=== PATIENT | male | born 1950 | race Native Hawaiian/Other Pacific Islander ===

== ENCOUNTER 2017-11-17 07:32 | Day surgery (SDC) | payer OTHER ==
[2017-11-11 07:26] VITALS: BMI 28.1
[2017-11-17] MEDS ORDERED: Propofol 10 mg/ml Inj (20 ML) ONE (09:57)
[2017-11-17] MEDS ORDERED: Midazolam 2 MG/2 ML VIAL ONE (09:57)
[2017-11-17] MEDS ORDERED: Rocuronium 10 mg/ml (10 ml) ONE (09:58)
[2017-11-17] MEDS ORDERED: ceFAZolin 1 gm in NS 1 GM/100 ML BAG IVPB ONE (10:14)
[2017-11-17] MEDS ORDERED: Iohexol 240 (50 ml) ONE ×2 (10:29→11:01)
[2017-11-17] MEDS ORDERED: HYDROmorphone 0.5 mg/0.5 ml ISec IVP PRN (11:37)
--- NOTE | 2017-11-17 11:42 | PCM.SURG1 ---
Surgeon's Initial Post Op Note - Surgeon's Notes Surgeon: Dr. Mccartney Runner Worker: Dr. Veliz PGY3 Type of Anesthesia: General Endo Pre-Operative Diagnosis: gallbladder polyps, sludge Operative Findings: normal cholangiogram Post-Operative Diagnosis: same Operation Performed: laparoscopoic cholecystectomy with cholangiogram Specimen/Specimens Removed: gallbladder Estimated Blood Loss: EBL {In ML}: 10 Blood Products Given: N/A Drains Used: No Drains Post-Op Condition: Good Date of Surgery/Procedure: 11/17/17 Time of Surgery/Procedure: 11:42
[2017-11-17] MEDS ORDERED: Oxycodone/Acetaminophen 5/325 mg Tab PO PRN (11:43)
--- NOTE | 2017-11-17 12:06 | RAD ---
PROCEDURE: Intraoperative fluoroscopy HISTORY: CHOLECYSTITIS COMPARISON: Not available TECHNIQUE: Intraoperative fluoroscopy was provided for intraoperative cholangiography. Total time of fluoroscopy was 75.6 seconds. FINDINGS: Multiple fluoroscopic spot images are obtained during injection of contrast material through the cystic duct remnant. No filling defect is demonstrated within the biliary duct on these spot images. IMPRESSION: Fluoroscopy provided.
[2017-11-17 13:20] VITALS: RESP 18
[2017-11-17 15:02] VITALS: BP 172/87; PULSE 88; TEMP 97.8; O2SAT 100
--- NOTE | 2017-11-17 22:18 | OP ---
PROCEDURE DATE: 11/17/2017 PREOPERATIVE DIAGNOSIS: Multiple gallbladder polyps/sledge balls. PROCEDURE: Laparoscopic cholecystectomy with C-arm cholangiogram. SURGEON: Dung Mccartney Jr., MD HUMANE AGENT: . ANESTHESIOLOGIST: Mr. Varma. INDICATIONS: The patient is a middle-aged man found to have multiple polyps in his gallbladder less than 1 cm in size as well as what is suspected to be sledge balls in the gallbladder. Preoperatively extensive discussion with the patient regarding the indications for intervention and extensive discussion, the patient requested that the procedure be carried out. OPERATIVE FINDINGS: Cholangiogram carried out to the cystic duct showed free flow into the duodenum. Visualization of the hepatic radicles without evidence of any stones or strictures. The rest of the intraoperative findings were unremarkable. DESCRIPTION OF PROCEDURE: The patient was given general anesthesia, intravenous antibiotics, Venodyne boots were applied. A Tai trocar was inserted by a cut-down technique. Two additional 5 mm trocars were placed. The cystic duct and cystic artery and view of safety obtained. After this had been done, we then removed the gallbladder after clipping the cystic duct, clipping the cystic artery and taking the cholangiogram. We then removed it from the field through the umbilical port. We then used a closure device to close the umbilical ports and subcuticular closure on the other areas. Blood loss for the procedure was 10 mL. Operation carried out, laparoscopic cholecystectomy with C-arm cholangiogram. Dung Mccartney Jr., MD cc: Rachael Ramirez MD
== END 2017-11-17 15:49 | disposition home or self-care (01) ==
LOC: C.SDS 07:32
PROVIDERS: ATTEND Surgery Vascular Surgery
DX: K81.1 Chronic cholecystitis (principal); E11.9 Type 2 diabetes mellitus without complications; E78.5 Hyperlipidemia, unspecified; I10 Essential (primary) hypertension; M10.9 Gout, unspecified; I71.4 Abdominal aortic aneurysm, without rupture; R94.39 Abnormal result of other cardiovascular function study; I35.1 Nonrheumatic aortic (valve) insufficiency; Z79.4 Long term (current) use of insulin
CPT/HCPCS: 47563; 82948; 88304; J0690; J1170; J2250; J2405; J2704; J3010; J7040; Q9966

== ENCOUNTER 2018-04-19 03:07 | Inpatient (IN) | payer OTHER, MEDICARE ==
[2018-04-19 03:07] VITALS: BMI 28.1
--- NOTE | 2018-04-19 03:25 | C.PDOC ---
History Of Present Illness 67 year old male presents to the ED c/o chest pain that woke him up from sleep. Patient also reports having some chest tightness, patient is speaking in complete sentences. Patient rates her pain at 4/10. Patient denies headache, SOB , palpitations, dizziness, weakness, numbness, nausea, vomit. Time Seen by Provider: 04/19/18 03:20 History Per: Patient History/Exam Limitations: no limitations Onset/Duration Of Symptoms: Hrs Current Symptoms Are (Timing): Still Present Context: Other Severity: Moderate Pain Scale Rating Of: 4 Quality: Dull, Tightness, Pressure Associated Symptoms: denies: Nausea Modifying Factors: None Exacerbating Factors: None Alleviating Factors: None Recent travel outside of the [place]: No Additional History Per: Patient, Family Past Medical History Reviewed: Historical Data, Nursing Documentation, Vital Signs Vital Signs: Last Vital Signs Temp 98.4 F 04/19/18 03:13 Pulse 66 04/19/18 03:13 Resp BP 188/88 H 04/19/18 03:13 Pulse Ox 95 04/19/18 03:13 - Medical History PMH: Gall Bladder Disease, HTN, Hypercholesterolemia Denies: Chronic Kidney Disease Surgical History: No Surg Hx Family History: States: Unknown Family Hx - Social History Hx Tobacco Use: No Hx Alcohol Use: No Hx Substance Use: No Review Of Systems Constitutional: Negative for: Fever, Chills Eyes: Negative for: Vision Change Cardiovascular: Positive for: Chest Pain. Negative for: Palpitations Respiratory: Negative for: Cough, Shortness of Breath Gastrointestinal: Negative for: Nausea, Vomiting Musculoskeletal: Negative for: Back Pain Skin: Negative for: Rash Neurological: Negative for: Weakness, Numbness, Headache, Dizziness Psych: Negative for: Anxiety Physical Exam - Physical Exam Appears: Non-toxic, No Acute Distress Skin: Warm, Dry Head: Normacephalic Eye(s): bilateral: Normal Inspection Oral Mucosa: Moist Neck: Supple Chest: Symmetrical Cardiovascular: Rhythm Regular Respiratory: No Rales, No Rhonchi, No Wheezing Gastrointestinal/Abdominal: Soft, No Tenderness, No Guarding, No Rebound Back: Normal Inspection Extremity: Normal ROM Extremity: Bilateral: Atraumatic, Normal Color And Temperature, Normal ROM Pulses: Left Dorsalis Pedis: Normal, Right Dorsalis Pedis: Normal Neurological/Psych: Oriented x3, Normal Speech, Normal Cognition Gait: Steady ED Course And Treatment - Laboratory Results Result Diagrams: 04/19/18 03:54 04/19/18 03:54 ECG: Interpreted By Me, Viewed By Me ECG Rhythm: Sinus Rhythm (61), Nonspecific Changes O2 Sat by Pulse Oximetry: 95 (ON RA) Pulse Ox Interpretation: Normal - Radiology CXR: Interpreted by Me, Viewed By Me CXR Interpretation: No: Infiltrates, Fracture, Pnemothorax Progress Note: Plan: - EKG. - Labs. - CXR. - Aspirin 325 mg PO. - Nitroglyc flash 1 ea TOP. - UA Disposition Discussed With Dr.: Rachael Ramirez Comment: accepted the pt on her service and took pover the care at 4:48 AM Doctor Will See Patient In The: Hospital Counseled Patient/Family Regarding: Studies Performed, Diagnosis - Disposition Disposition: HOSPITALIZED Disposition Time: 03:21 Condition: FAIR - POA Present On Arrival: Poor Glycemic Control - Clinical Impression Clinical Impression: Chest pain - Scribe Statement The provider has reviewed the documentation as recorded by the Scribe Sathish Aguilar All medical record entries made by the Scribe were at my direction and personally dictated by me. I have reviewed the chart and agree that the record accurately reflects my personal performance of the history, physical exam, medical decision making, and the department course for this patient. I have also personally directed, reviewed, and agree with the discharge instructions and disposition. Decision To Admit - Pt Status Changed To: Hospital Disposition Of: Inpatient - Admit Certification Admit to Inpatient:: After my assessment, the patient will require hospitalization for at least two midnights. This is because of the severity of symptoms shown, intensity of services needed, and/or the medical risk in this patient being treated as an outpatient. - InPatient: Physician Admission Certification: I certify that this patient requires 2 or more midnights of care for the following reason:: After my assessment, the patient will require hospitalization for at least two midnights. This is because of the severity of symptoms shown, intensity of services needed, and/or the medical risk in this patient being treated as an outpatient. - . Bed Request Type: Telemetry Admitting Physician: Rachael Ramirez Patient Diagnosis: Chest pain
[2018-04-19] MEDS ORDERED: Nitroglycerin 2% Ointment Foilpak UD TOP STA (03:44)
[2018-04-19] MEDS ORDERED: Aspirin 325 mg EC Tablets PO STA (03:44)
[2018-04-19] MEDS ORDERED: Nitroglycerin 2% Ointment Foilpak UD TOP ONE (03:56)
[2018-04-19] MEDS ORDERED: Aspirin 325 mg EC Tablets PO ONE (03:57)
[2018-04-19 04:00] LABS: BASO # 0.1 K/uL (0.0-0.2); BASO % 0.8 % (0.0-2.0); EOS # 0.2 K/uL (0.0-0.7); EOS % 3.2 % (0.0-4.0); HEMOGLOBIN 13.3 g/dL (12.0-18.0); LYMPH # 2.1 K/uL (1.0-4.3); LYMPH % 28.6 % (20.0-40.0); MEAN CELL VOLUME 83.1 fL (80.0-94.0); MEAN CORPUSCULAR HEMOGLOBIN 29.7 pg (27.0-31.0); MEAN CORPUSCULAR HGB CONC 35.7 g/dL (33.0-37.0); MEAN PLATELET VOLUME 8.9 fL (7.2-11.7); MONO # 0.9 K/uL (0.0-0.8); MONO % 12.2 % (0.0-10.0); NEUT # 4.1 K/uL (1.8-7.0); NEUT % 55.2 % (50.0-75.0); NRBC % 0.1 % (0.0-2.0); RBC 4.47 Mil/uL (4.40-5.90); RED CELL DISTRIBUTION WIDTH 13.2 % (11.5-14.5); WHITE BLOOD COUNT 7.3 K/uL (4.8-10.8)
[2018-04-19 04:14] LABS: URINE BILIRUBIN NEGATIVE (NEGATIVE); URINE BLOOD NEGATIVE (NEGATIVE); URINE CLARITY Clear (Clear); URINE COLOR Straw (YELLOW); URINE GLUCOSE (UA) NORMAL (Normal); URINE LEUKOCYTE ESTERASE NEG Leu/uL (Negative); URINE PROTEIN NEGATIVE (NEGATIVE); URINE UROBILINOGEN NORMAL mg/dL (0.2-1.0)
[2018-04-19 04:18] LABS: INR 0.9; PROTHROMBIN TIME 10.3 SECONDS (9.7-12.2)
[2018-04-19 04:20] LABS: ALB/GLOB RATIO 1.7 (1.0-2.1); ALBUMIN 4.8 g/dL (3.5-5.0); ALT/SGPT 22 U/L (21-72); AST/SGOT 26 U/L (17-59); BLOOD UREA NITROGEN 16 mg/dL (9-20); CALCIUM 9.8 mg/dl (8.6-10.4); GFR NON-AFRICAN AMERICAN > 60; HDL CHOLESTEROL 30 mg/dL (30-70)
[2018-04-19 04:29] LABS: B-TYPE NATRIURETIC PEPTIDE 145 pg/mL (0-900)
[2018-04-19 04:30] LABS: LDL CHOLESTEROL 44 mg/dL (0-129)
--- NOTE | 2018-04-19 09:57 | RAD ---
Date of service: 04/19/2018 PROCEDURE: CHEST RADIOGRAPH, 1 VIEW HISTORY: chest pain COMPARISON: None available. FINDINGS: LUNGS: Mild venous congestion. Right hilar prominence. PLEURA: No pneumothorax or pleural fluid seen. CARDIOVASCULAR: Enlarged ectatic aorta. Cardiomegaly. OSSEOUS STRUCTURES: No significant abnormalities. VISUALIZED UPPER ABDOMEN: Normal. OTHER FINDINGS: None. IMPRESSION: Mild venous congestion. Right hilar prominence.
[2018-04-19] MEDS: Omega-3-Acid Ethyl Esters 1 GM Cap PO SCH ×2 (10:59→18:32)
[2018-04-19] MEDS: Metoprolol Succinate 50 mg XL Tab PO SCH ×2 (10:59→18:32)
--- NOTE | 2018-04-19 11:53 | CP.PCM.HP ---
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 no nausea no vomiting , no syncope , patient got scared and came to ER in ER - Troponinn normal, EKG no acute abnormality. patient was admitted for further evaluation and management Cardio was called for consult and further discussion no cough , no congestion, no SOB, no Gi complaints cardiac angiogram early this year Present on Admission - Present on Admission Any Indicators Present on Admission: No History of DVT/PE: No History of Uncontrolled Diabetes: No Urinary Catheter: No Decubitus Ulcer Present: No Review of Systems - Constitutional Constitutional: absent: Anorexia, Lethargy, Weight Gain, Weakness - EENT Eyes: absent: Other Visual Disturbances Ears: absent: Decreased Hearing Nose/Mouth/Throat: absent: Nasal Congestion, Nasal Discharge, Sore Throat - Cardiovascular Cardiovascular: Chest Pain (few hours ago , nothing now). absent: Chest Pain at Rest, Dyspnea, Dyspnea on Exertion - Respiratory Respiratory: absent: Cough, Dyspnea on Exertion, Chest Congestion - Gastrointestinal Gastrointestinal: absent: Abdominal Pain, Cramping, Diarrhea, Vomiting - Genitourinary Genitourinary: absent: Difficulty Urinating - Musculoskeletal Musculoskeletal: absent: Abnormal Gait, Back Pain, Muscle Cramps - Integumentary Integumentary: absent: Rash, Skin Ulcer - Neurological Neurological: absent: Abnormal Gait, Abnormal Hearing, Behavioral Changes, Convulsions, Dizziness - Psychiatric Psychiatric: absent: Auditory Hallucinations, Behavioral Changes, Confusion, Depression - Endocrine Endocrine: Polydipsia. absent: Polyphagia, Polyuria - Hematologic/Lymphatic Hematologic: Easy Bleeding, Easy Bruising Past Patient History - Past Medical History & Family History Past Medical History?: Yes - Past Social History Smoking Status: Never Smoked - CARDIAC Hx Hypercholesterolemia: Yes Hx Hypertension: Yes - PULMONARY Hx Respiratory Disorders: No - NEUROLOGICAL Hx Neurological Disorder: No - HEENT Hx HEENT Problems: No - RENAL Hx Chronic Kidney Disease: No - ENDOCRINE/METABOLIC Hx Endocrine Disorders: Yes Hx Diabetes Mellitus Type 2: Yes - HEMATOLOGICAL/ONCOLOGICAL Hx Blood Disorders: No - INTEGUMENTARY Hx Dermatological Problems: Yes Other/Comment: HX: CYST LEFT WRIST - MUSCULOSKELETAL/RHEUMATOLOGICAL Hx Musculoskeletal Disorders: Yes Hx Falls: No Hx Gout: Yes (LAST EPISODE ABOUT 2015) - GASTROINTESTINAL Hx Gall Bladder Disease: Yes - GENITOURINARY/GYNECOLOGICAL Hx Genitourinary Disorders: No - PSYCHIATRIC Hx Substance Use: No - SURGICAL HISTORY Hx Surgeries: Yes Hx Cardiac Catheterization: Yes (10/28/17) Hx Cholecystectomy: Yes (09/2017) Other/Comment: HX: CYST LEFT WRIST REMOVED UNDER LOCAL ANESTHESIA - ANESTHESIA Hx Anesthesia: Yes Hx Anesthesia Reactions: No Meds Allergies/Adverse Reactions: Allergies Allergy/AdvReac Type Severity Reaction Status Date / Time No Known Allergies Allergy Verified 04/19/18 03:27 Physical Exam - Constitutional Appears: Well, Non-toxic (conversant very much aware of condition) - Head Exam Head Exam: ATRAUMATIC, NORMOCEPHALIC - Eye Exam Eye Exam: Normal appearance. absent: Periorbital swelling - ENT Exam ENT Exam: Mucous Membranes Moist - Neck Exam Neck exam: Positive for: Full Rom. Negative for: Tenderness - Respiratory Exam Respiratory Exam: Clear to Auscultation Bilateral, NORMAL BREATHING PATTERN - Cardiovascular Exam Cardiovascular Exam: REGULAR RHYTHM - GI/Abdominal Exam GI & Abdominal Exam: Normal Bowel Sounds, Soft. absent: Tenderness - Extremities Exam Extremities exam: Positive for: full ROM, pedal pulses present. Negative for: joint swelling, pedal edema, tenderness - Neurological Exam Neurological exam: Alert, Normal Gait, Oriented x3 - Psychiatric Exam Psychiatric exam: Normal Affect, Normal Mood - Skin Skin Exam: Intact, Normal Color Results - Vital Signs Recent Vital Signs: Last Vital Signs Temp 98 F 04/19/18 08:05 Pulse 53 L 04/19/18 08:05 Resp 20 04/19/18 08:05 BP 146/78 04/19/18 08:05 Pulse Ox 97 04/19/18 08:05 - Labs Result Diagrams: 04/19/18 03:54 04/19/18 03:54 Labs: Laboratory Results - last 24 hr 04/19/18 04/19/18 04/19/18 03:23 03:54 03:54 WBC 7.3 RBC 4.47 Hgb 13.3 Hct 37.1 MCV 83.1 MCH 29.7 MCHC 35.7 RDW 13.2 Plt Count 240 MPV 8.9 Neut % (Auto) 55.2 Lymph % (Auto) 28.6 [place] % (Auto) 12.2 H Eos % (Auto) 3.2 Baso % (Auto) 0.8 Neut # (Auto) 4.1 Lymph # (Auto) 2.1 [place] # (Auto) 0.9 H Eos # (Auto) 0.2 Baso # (Auto) 0.1 PT 10.3 INR 0.9 APTT 35 H Sodium Potassium Chloride Carbon Dioxide Anion Gap BUN Creatinine Est GFR ( Amer) Est GFR (Non-Af Amer) POC Glucose (mg/dL) 116 H Random Glucose Calcium Total Bilirubin AST ALT Alkaline Phosphatase Troponin I NT-Pro-B Natriuret Pep Total Protein Albumin Globulin Albumin/Globulin Ratio Triglycerides Cholesterol LDL Cholesterol Direct HDL Cholesterol Urine Color Urine Clarity Urine pH Ur Specific [place] Urine Protein Urine Glucose (UA) Urine Ketones Urine Blood Urine Nitrate Urine Bilirubin Urine Urobilinogen Ur Leukocyte Esterase B-Hydroxybutyrate 04/19/18 04/19/18 04/19/18 03:54 04:08 07:59 WBC RBC Hgb Hct MCV MCH MCHC RDW Plt Count MPV Neut % (Auto) Lymph % (Auto) [place] % (Auto) Eos % (Auto) Baso % (Auto) Neut # (Auto) Lymph # (Auto) [place] # (Auto) Eos # (Auto) Baso # (Auto) PT INR APTT Sodium 142 Potassium 3.5 L Chloride 104 Carbon Dioxide 24 Anion Gap 18 BUN 16 Creatinine 0.9 Est GFR ( Amer) > 60 Est GFR (Non-Af Amer) > 60 POC Glucose (mg/dL) 118 H Random Glucose 120 H Calcium 9.8 Total Bilirubin 0.6 AST 26 ALT 22 Alkaline Phosphatase 107 Troponin I < 0.0120 NT-Pro-B Natriuret Pep 145 Total Protein 7.6 Albumin 4.8 Globulin 2.9 Albumin/Globulin Ratio 1.7 Triglycerides 478 H Cholesterol 134 LDL Cholesterol Direct 44 HDL Cholesterol 30 Urine Color Straw Urine Clarity Clear Urine pH 7.0 Ur Specific [place] 1.004 Urine Protein Negative Urine Glucose (UA) Normal Urine Ketones Negative Urine Blood Negative Urine Nitrate Negative Urine Bilirubin Negative Urine Urobilinogen Normal Ur Leukocyte Esterase Neg B-Hydroxybutyrate 0.11 Assessment & Plan - Assessment and Plan (Free Text) Assessment: Patient with mitiple medical problems Hypertension NIDDM2 Gout Cholesterol admitted for chest pain after physical activity-cleared by cardio- had near normal angiogram done early this year- patient for home will continue meds monitor BP and will adjust accordingly follow up in the clinic continue home meds for now - Date & Time Date: 04/19/18 Time: 09:00
[2018-04-19] MEDS ORDERED: Potassium Chloride 20 mEq ER Tab PO SCH (12:00)
[2018-04-19 13:47] LABS: CK-MB 0.75 ng/mL (0.0-3.38)
--- NOTE | 2018-04-19 16:26 | CP.PCM.CON ---
History of Present Illness - History of Present Illness History of Present Illness: The pt is a 67 year old man with HTN, DM and hyperlipidemia. He was working or several hours in the bathroom fixing something, in a small space. At 1:30 AM, he had chest pain in bed, went to the ER, and pain continued for a total of 3 hours. Pt feels better today. PMH pt had a c cath 08/2017, and only a 20% lesion. ECG shows s ruddy, t wave inversion. TNI are negative. Review of Systems - Review of Systems All systems: reviewed and no additional remarkable complaints except (as above.) Past Patient History - Past Medical History & Family History Past Medical History?: Yes - Past Social History Smoking Status: Never Smoked - CARDIAC Hx Hypercholesterolemia: Yes Hx Hypertension: Yes - PULMONARY Hx Respiratory Disorders: No - NEUROLOGICAL Hx Neurological Disorder: No - HEENT Hx HEENT Problems: No - RENAL Hx Chronic Kidney Disease: No - ENDOCRINE/METABOLIC Hx Endocrine Disorders: Yes Hx Diabetes Mellitus Type 2: Yes - HEMATOLOGICAL/ONCOLOGICAL Hx Blood Disorders: No - INTEGUMENTARY Hx Dermatological Problems: Yes Other/Comment: HX: CYST LEFT WRIST - MUSCULOSKELETAL/RHEUMATOLOGICAL Hx Musculoskeletal Disorders: Yes Hx Falls: No Hx Gout: Yes (LAST EPISODE ABOUT 2015) - GASTROINTESTINAL Hx Gall Bladder Disease: Yes - GENITOURINARY/GYNECOLOGICAL Hx Genitourinary Disorders: No - PSYCHIATRIC Hx Substance Use: No - SURGICAL HISTORY Hx Surgeries: Yes Hx Cardiac Catheterization: Yes (10/28/17) Hx Cholecystectomy: Yes (09/2017) Other/Comment: HX: CYST LEFT WRIST REMOVED UNDER LOCAL ANESTHESIA - ANESTHESIA Hx Anesthesia: Yes Hx Anesthesia Reactions: No Meds Allergies/Adverse Reactions: Allergies Allergy/AdvReac Type Severity Reaction Status Date / Time No Known Allergies Allergy Verified 04/19/18 03:27 - Medications Medications: Current Medications Allopurinol (Zyloprim) 100 mg PO DAILY [facility] Last Admin: 04/19/18 10:59 Dose: 100 mg Amlodipine Besylate (Norvasc) 5 mg PO DAILY [facility] Last Admin: 04/19/18 10:59 Dose: 5 mg Aspirin (Ecotrin) 81 mg PO DAILY [facility] Last Admin: 04/19/18 10:59 Dose: 81 mg Hydralazine HCl (Apresoline) 10 mg PO TID [facility] Last Admin: 04/19/18 13:07 Dose: 10 mg Influenza Virus Vaccine (Fluzone Quad [id number]) 60 mcg IM .ONCE ONE Stop: 04/21/18 10:01 Losartan Potassium (Cozaar) 100 mg PO DAILY [facility] Last Admin: 04/19/18 10:59 Dose: 100 mg [facility] Metoprolol Succinate (Toprol Xl) 50 mg PO BID [facility] Last Admin: 04/19/18 10:59 Dose: 50 mg Niacin (Niacin) 500 mg PO BID [facility] Last Admin: 04/19/18 10:59 Dose: 500 mg [id number] Ethyl Esters (Lovaza) 2 gm PO BID [facility] Last Admin: 04/19/18 10:59 Dose: 2 gm Pneumococcal Polyvalent Vaccine (Pneumovax 23 Vaccine) 0.5 ml IM .ONCE ONE Stop: 04/21/18 10:01 Potassium Chloride (K-Dur 20 Meq Er Tab) 20 meq PO DAILY [facility] Last Admin: 04/19/18 13:00 Dose: 20 meq Rosuvastatin Calcium (Crestor) 10 mg PO [facility] Physical Exam - Constitutional Appears: Well - Eye Exam Eye Exam: EOMI - ENT Exam ENT Exam: Mucous Membranes Moist - Neck Exam Neck exam: Positive for: Normal Inspection - Respiratory Exam Respiratory Exam: Clear to Auscultation Bilateral - Cardiovascular Exam Cardiovascular Exam: REGULAR RHYTHM - GI/Abdominal Exam GI & Abdominal Exam: Normal Bowel Sounds - Rectal Exam Rectal Exam: NORMAL INSPECTION - Exam External exam: NORMAL EXTERNAL EXAM - Extremities Exam Extremities exam: Positive for: normal inspection - Back Exam Back exam: NORMAL INSPECTION - Neurological Exam Neurological exam: Alert, CN II-XII Intact, Oriented x3 - Psychiatric Exam Psychiatric exam: Normal Affect - Skin Skin Exam: Normal Color Results - Vital Signs Recent Vital Signs: Last Vital Signs Temp 98.1 F 04/19/18 12:00 Pulse 58 L 04/19/18 12:00 Resp 16 04/19/18 12:00 BP 142/77 04/19/18 12:00 Pulse Ox 97 04/19/18 12:00 - Labs Result Diagrams: 04/19/18 03:54 04/19/18 03:54 Labs: Laboratory Results - last 24 hr 04/19/18 04/19/18 04/19/18 03:23 03:54 03:54 WBC 7.3 RBC 4.47 Hgb 13.3 Hct 37.1 MCV 83.1 MCH 29.7 MCHC 35.7 RDW 13.2 Plt Count 240 MPV 8.9 Neut % (Auto) 55.2 Lymph % (Auto) 28.6 [place] % (Auto) 12.2 H Eos % (Auto) 3.2 Baso % (Auto) 0.8 Neut # (Auto) 4.1 Lymph # (Auto) 2.1 [place] # (Auto) 0.9 H Eos # (Auto) 0.2 Baso # (Auto) 0.1 PT 10.3 INR 0.9 APTT 35 H Sodium Potassium Chloride Carbon Dioxide Anion Gap BUN Creatinine Est GFR ( Amer) Est GFR (Non-Af Amer) POC Glucose (mg/dL) 116 H Random Glucose Calcium Total Bilirubin AST ALT Alkaline Phosphatase Total Creatine Kinase CK-MB (Mass) Troponin I NT-Pro-B Natriuret Pep Total Protein Albumin Globulin Albumin/Globulin Ratio Triglycerides Cholesterol LDL Cholesterol Direct HDL Cholesterol Urine Color Urine Clarity Urine pH Ur Specific [place] Urine Protein Urine Glucose (UA) Urine Ketones Urine Blood Urine Nitrate Urine Bilirubin Urine Urobilinogen Ur Leukocyte Esterase B-Hydroxybutyrate 04/19/18 04/19/18 04/19/18 03:54 04:08 07:59 WBC RBC Hgb Hct MCV MCH MCHC RDW Plt Count MPV Neut % (Auto) Lymph % (Auto) [place] % (Auto) Eos % (Auto) Baso % (Auto) Neut # (Auto) Lymph # (Auto) [place] # (Auto) Eos # (Auto) Baso # (Auto) PT INR APTT Sodium 142 Potassium 3.5 L Chloride 104 Carbon Dioxide 24 Anion Gap 18 BUN 16 Creatinine 0.9 Est GFR ( Amer) > 60 Est GFR (Non-Af Amer) > 60 POC Glucose (mg/dL) 118 H Random Glucose 120 H Calcium 9.8 Total Bilirubin 0.6 AST 26 ALT 22 Alkaline Phosphatase 107 Total Creatine Kinase CK-MB (Mass) Troponin I < 0.0120 NT-Pro-B Natriuret Pep 145 Total Protein 7.6 Albumin 4.8 Globulin 2.9 Albumin/Globulin Ratio 1.7 Triglycerides 478 H Cholesterol 134 LDL Cholesterol Direct 44 HDL Cholesterol 30 Urine Color Straw Urine Clarity Clear Urine pH 7.0 Ur Specific [place] 1.004 Urine Protein Negative Urine Glucose (UA) Normal Urine Ketones Negative Urine Blood Negative Urine Nitrate Negative Urine Bilirubin Negative Urine Urobilinogen Normal Ur Leukocyte Esterase Neg B-Hydroxybutyrate 0.11 04/19/18 13:08 WBC RBC Hgb Hct MCV MCH MCHC RDW Plt Count MPV Neut % (Auto) Lymph % (Auto) [place] % (Auto) Eos % (Auto) Baso % (Auto) Neut # (Auto) Lymph # (Auto) [place] # (Auto) Eos # (Auto) Baso # (Auto) PT INR APTT Sodium Potassium Chloride Carbon Dioxide Anion Gap BUN Creatinine Est GFR ( Amer) Est GFR (Non-Af Amer) POC Glucose (mg/dL) Random Glucose Calcium Total Bilirubin AST ALT Alkaline Phosphatase Total Creatine Kinase 82 CK-MB (Mass) 0.75 Troponin I < 0.0120 NT-Pro-B Natriuret Pep Total Protein Albumin Globulin Albumin/Globulin Ratio Triglycerides Cholesterol LDL Cholesterol Direct HDL Cholesterol Urine Color Urine Clarity Urine pH Ur Specific [place] Urine Protein Urine Glucose (UA) Urine Ketones Urine Blood Urine Nitrate Urine Bilirubin Urine Urobilinogen Ur Leukocyte Esterase B-Hydroxybutyrate - EKG Data EKG Interpreted by: Myself (s ruddy. mild first degree av block, lateral T wave inversion) Assessment & Plan - Assessment and Plan (Free Text) Assessment: 1. pt did heavy work yesterday, had three hours of very localized chest pain, at rest with normal TNI three times. ECG findings not specific for ischemia, can also be room HTN. pt had a recent nearly normal cath. Chest pain is likely non anginal and pt can be discharged, and followed up with Dr Gibbs. 2. Bp is a little high and bp should be followed by either pmd or Dr Gibbs.
[2018-04-19 17:13] VITALS: RESP 20; TEMP 97.9; O2SAT 96
[2018-04-20 00:30] VITALS: BP 155/79; PULSE 58
--- NOTE | 2018-04-20 08:03 | CP.PCM.DIS ---
Provider - Provider Date of Admission: 04/19/18 04:47 Attending physician: Rachael Ramirez MD Time Spent in preparation of Discharge (in minutes): 30 Hospital Course - Lab Results Lab Results: Most Recent Lab Values WBC 7.3 K/uL (4.8-10.8) 04/19/18 03:54 RBC 4.47 Mil/uL (4.40-5.90) 04/19/18 03:54 Hgb 13.3 g/dL (12.0-18.0) 04/19/18 03:54 Hct 37.1 % (35.0-51.0) 04/19/18 03:54 MCV 83.1 fL (80.0-94.0) 04/19/18 03:54 MCH 29.7 pg (27.0-31.0) 04/19/18 03:54 MCHC 35.7 g/dL (33.0-37.0) 04/19/18 03:54 RDW 13.2 % (11.5-14.5) 04/19/18 03:54 Plt Count 240 K/uL (130-400) 04/19/18 03:54 MPV 8.9 fL (7.2-11.7) 04/19/18 03:54 Neut % (Auto) 55.2 % (50.0-75.0) 04/19/18 03:54 Lymph % (Auto) 28.6 % (20.0-40.0) 04/19/18 03:54 [place] % (Auto) 12.2 % (0.0-10.0) H 04/19/18 03:54 Eos % (Auto) 3.2 % (0.0-4.0) 04/19/18 03:54 Baso % (Auto) 0.8 % (0.0-2.0) 04/19/18 03:54 Neut # (Auto) 4.1 K/uL (1.8-7.0) 04/19/18 03:54 Lymph # (Auto) 2.1 K/uL (1.0-4.3) 04/19/18 03:54 [place] # (Auto) 0.9 K/uL (0.0-0.8) H 04/19/18 03:54 Eos # (Auto) 0.2 K/uL (0.0-0.7) 04/19/18 03:54 Baso # (Auto) 0.1 K/uL (0.0-0.2) 04/19/18 03:54 PT 10.3 SECONDS (9.7-12.2) 04/19/18 03:54 INR 0.9 04/19/18 03:54 APTT 35 SECONDS (21-34) H 04/19/18 03:54 Sodium 142 mmol/L (132-148) 04/19/18 03:54 Potassium 3.5 mmol/L (3.6-5.2) L 04/19/18 03:54 Chloride 104 mmol/L (98-107) 04/19/18 03:54 Carbon Dioxide 24 mmol/L (22-30) 04/19/18 03:54 Anion Gap 18 (10-20) 04/19/18 03:54 BUN 16 mg/dL (9-20) 04/19/18 03:54 Creatinine 0.9 mg/dL (0.8-1.5) 04/19/18 03:54 Est GFR ( Amer) > 60 04/19/18 03:54 Est GFR (Non-Af Amer) > 60 04/19/18 03:54 POC Glucose (mg/dL) 158 mg/dL (65-110) H 04/19/18 16:37 Random Glucose 120 mg/dL (75-110) H 04/19/18 03:54 Calcium 9.8 mg/dl (8.6-10.4) 04/19/18 03:54 Total Bilirubin 0.6 mg/dL (0.2-1.3) 04/19/18 03:54 AST 26 U/L (17-59) 04/19/18 03:54 ALT 22 U/L (21-72) 04/19/18 03:54 Alkaline Phosphatase 107 U/L (38-126) 04/19/18 03:54 Total Creatine Kinase 82 U/L (55-170) 04/19/18 13:08 CK-MB (Mass) 0.75 ng/mL (0.0-3.38) 04/19/18 13:08 Troponin I < 0.0120 ng/mL (0.00-0.120) 04/19/18 13:08 NT-Pro-B Natriuret Pep 145 pg/mL (0-900) 04/19/18 03:54 Total Protein 7.6 g/dL (6.3-8.3) 04/19/18 03:54 Albumin 4.8 g/dL (3.5-5.0) 04/19/18 03:54 Globulin 2.9 gm/dL (2.2-3.9) 04/19/18 03:54 Albumin/Globulin Ratio 1.7 (1.0-2.1) 04/19/18 03:54 Triglycerides 478 mg/dL (0-149) H 04/19/18 03:54 Cholesterol 134 mg/dL (0-199) 04/19/18 03:54 LDL Cholesterol Direct 44 mg/dL (0-129) 04/19/18 03:54 HDL Cholesterol 30 mg/dL (30-70) 04/19/18 03:54 Urine Color Straw (YELLOW) 04/19/18 04:08 Urine Clarity Clear (Clear) 04/19/18 04:08 Urine pH 7.0 (5.0-8.0) 04/19/18 04:08 Ur Specific [place] 1.004 (1.003-1.030) 04/19/18 04:08 Urine Protein Negative mg/dL (NEGATIVE) 04/19/18 04:08 Urine Glucose (UA) Normal mg/dL (Normal) 04/19/18 04:08 Urine Ketones Negative mg/dL (NEGATIVE) 04/19/18 04:08 Urine Blood Negative (NEGATIVE) 04/19/18 04:08 Urine Nitrate Negative (NEGATIVE) 04/19/18 04:08 Urine Bilirubin Negative (NEGATIVE) 04/19/18 04:08 Urine Urobilinogen Normal mg/dL (0.2-1.0) 04/19/18 04:08 Ur Leukocyte Esterase Neg Zari/uL (Negative) 04/19/18 04:08 B-Hydroxybutyrate 0.11 mM (0.02-0.27) 04/19/18 03:54 - Hospital Course Hospital Course: admitted due to tight torso chest pain- after physical household repair- troponin negative, but patient had near normal angiogram september 2017- and was cleared by cardio for home Discharge Exam - Head Exam Head Exam: ATRAUMATIC, NORMOCEPHALIC - Eye Exam Eye Exam: Normal appearance - ENT Exam ENT Exam: Mucous Membranes Moist - Neck Exam Neck exam: Full Rom - Respiratory Exam Respiratory Exam: Clear to PA & Lateral, NORMAL BREATHING PATTERN - Cardiovascular Exam Cardiovascular Exam: REGULAR RHYTHM - GI/Abdominal Exam GI & Abdominal Exam: Normal Bowel Sounds, Soft. absent: Tenderness - Extremities Exam Extremities exam: normal inspection - Back Exam Back exam: absent: tenderness - Neurological Exam Neurological exam: Alert, Normal Gait, Oriented x3 - Psychiatric Exam Psychiatric exam: Normal Affect, Normal Mood - Skin Skin Exam: Intact, Normal Color Discharge Plan - Follow Up Plan Condition: FAIR Disposition: HOME/ ROUTINE Instructions: Chest Pain (DC) Additional Instructions: Continue all meds taken @ home
[2018-04-21] MEDS ORDERED: Pneumococcal 23-Valent Vaccine IM ONE (10:00)
[2018-04-21] MEDS ORDERED: Influenza Vaccine 60 MCG/0.5 ML SYR (3 yr & up) IM ONE (10:00)
== END 2018-04-19 21:00 | disposition home or self-care (01) | DRG 313 ==
LOC: C.ER 03:07 → C.9E 04:47 → C.6T 13:49
PROVIDERS: ADMIT Internal Medicine; ATTEND Internal Medicine
DX: R07.89 Other chest pain (principal); I10 Essential (primary) hypertension; E11.9 Type 2 diabetes mellitus without complications; E78.00 Pure hypercholesterolemia, unspecified; E78.5 Hyperlipidemia, unspecified; M10.9 Gout, unspecified; Z79.84 Long term (current) use of oral hypoglycemic drugs; Z90.49 Acquired absence of other specified parts of digestive tract

== ENCOUNTER 2018-08-01 07:44 | Emergency (ER) | payer MEDICARE, OTHER ==
[2018-08-01 07:59] VITALS: BMI 27.3
--- NOTE | 2018-08-01 08:16 | C.PDOC ---
History Of Present Illness Patient presents to ED c/o SOB for the past few days, worse with laying flat and exertion/walking (multiple pillow orthopnea). SOB is associated with constant B/L chest pain that is nonpleuritic and nonrediating. He denies cough, fever, abdominal pain, nausea/vomiting, diarrhea. PMHx - HTN, hyperlipidemia, AAA, cholecystectomy Time Seen by Provider: 08/01/18 08:00 Chief Complaint (Nursing): Chest Pain History Per: Patient, Family ( ) History/Exam Limitations: no limitations Onset/Duration Of Symptoms: Days (3) Current Symptoms Are (Timing): Still Present Severity: Mild Quality: "Pain" Associated Symptoms: Dyspnea. denies: Nausea, Diaphoresis, Syncope Exacerbating Factors: Exertion, Other (laying flat ) Past Medical History Reviewed: Historical Data, Nursing Documentation, Vital Signs Vital Signs: Last Vital Signs Temp 97.6 F 08/01/18 08:06 Pulse 70 08/01/18 08:06 Resp 20 08/01/18 08:06 BP 122/69 08/01/18 08:06 Pulse Ox 96 08/01/18 08:06 - Medical History PMH: Cardiac Aneurysm (AAA), Gall Bladder Disease, HTN, Hypercholesterolemia Surgical History: Cholecystectomy (09/2017) Family History: States: No Known Family Hx - Social History Hx Tobacco Use: No Hx Alcohol Use: No Hx Substance Use: No - Immunization History Hx Tetanus Toxoid Vaccination: No Hx Influenza Vaccination: Yes Hx Pneumococcal Vaccination: No Review Of Systems Constitutional: Negative for: Fever, Chills Cardiovascular: Positive for: Chest Pain. Negative for: Palpitations Respiratory: Positive for: Shortness of Breath, SOB with Excertion. Negative for: Cough, Wheezing Gastrointestinal: Negative for: Nausea, Vomiting, Abdominal Pain, Diarrhea Skin: Negative for: Rash Neurological: Negative for: Weakness, Numbness, Headache, Dizziness Physical Exam - Physical Exam Appears: Well, Non-toxic, No Acute Distress, Other (speaking in full sentences ) Skin: Normal Color, Warm, Dry Head: Normacephalic Oral Mucosa: Moist Cardiovascular: Rhythm Regular, No Murmur Respiratory: Normal Breath Sounds, No Accessory Muscle Use, No Rales, No Rhonchi , No Wheezing Gastrointestinal/Abdominal: Normal Exam, Bowel Sounds, Soft, No Tenderness Extremity: Pedal Edema (+1 pitting edema B/L LEs), No Calf Tenderness Pulses: Left Dorsalis Pedis: Normal, Right Dorsalis Pedis: Normal Neurological/Psych: Oriented x3 ED Course And Treatment - Laboratory Results Result Diagrams: 08/01/18 08:52 08/01/18 08:52 ECG: Interpreted By Me, Viewed By Me (sinus rhythm 70 bpm, 1st degree AV block, normal axis, T wabe inversions II, III, aVF, V4-V6, no ST changes) ECG Interpretation: Abnormal O2 Sat by Pulse Oximetry: 96 (RA) Pulse Ox Interpretation: Normal - CT Scan/US CTA CHEST Other Rad Studies (CT/US): Read By Radiologist, Radiology Report Reviewed CT/US Interpretation: Accession No. : [id number]. Patient Name / ID : JUAN LANDERS / [id number]. Exam Date : 08/01/2018 10:15:35 ( Approved ). Study Comment : Sex / Age : M / 67Y. Creator : Debra Uribe. Dictator : Rosalina Louise MD. Pharmacy Customer Care Specialist : Buyer Renter : Rosalina Louise MD. Approver2 : Report Date : 08/01/2018 10:24:19. My Comment : . This report is currently processing and HAS NOT BEEN OFFICIALLY SIGNED BY THE PHYSICIAN - ESTIMATED TIME OF APPROVAL IS 08/01/2018 11:09. Date of service: 08/01/2018. CTA chest PE protocol. Indication: sob, chest pain. Technique: Contiguous axial images were obtained through the chest with intravenous contrast enhancement. Sagittal and coronal reconstructions were generated and reviewed. This CT exam was performed using 1 or more of the following dose reduction techniques: Automated exposure control, adjustment of the MAA and/or kV according to patient size, and/or use of iterative reconstru ction technique. IV contrast: 100 mL Visipaque 320 IV. . Radiation dose (DLP): 544.23 MGy-cm. Comparison: Chest x-ray performed 08/01/18. Findings: Visualized portions of the inferior thyroid gland appear heterogeneous with probable 8 x 7 mm nodule, left lower pole. The mediastinal and hilar vascular structures appear within normal limits. Cardiomegaly. Marked left ventricular hypertrophy. Small pericardial fluid. Atherosclerotic calcifications of the aorta. No large central or segmental pulmonary embolus evident. Bibasilar atelectasis. No focal consolidation. No pleural effusion. No pneumothorax. Limited visualized portions of the upper abdomen: Cholecystectomy. Degenerative changes of the spine. Impression: No large central or segmental pulmonary embolus identified. Cardiomegaly. Marked left ventricular hypertrophy. Small pericardial fluid. Recommend further evaluation with echocardiogram. Mild bibasilar atelectasis. Cholecystectomy clips. Visualized portions of the i nferior thyroid gland appear heterogeneous with probable 8 x 7 mm nodule, left lower pole. Follow-up with nonemergent thyroid ultrasound may be considered if indicated. Progress Note: 12:35 - Patient would like to sign out against medical advice. Disposition - Disposition Disposition: AGAINST MEDICAL ADVICE Disposition Time: 12:35 Condition: STABLE - Clinical Impression Clinical Impression: Left against medical advice, Chest pain, Dyspnea
[2018-08-01 08:58] LABS: BASO # 0.1 K/uL (0.0-0.2); BASO % 1.2 % (0.0-2.0); EOS # 0.1 K/uL (0.0-0.7); HEMOGLOBIN 12.8 g/dL (12.0-18.0); LYMPH # 1.1 K/uL (1.0-4.3); LYMPH % 21.5 % (20.0-40.0); MEAN CELL VOLUME 84.8 fL (80.0-94.0); MEAN CORPUSCULAR HEMOGLOBIN 29.7 pg (27.0-31.0); MEAN PLATELET VOLUME 8.5 fL (7.2-11.7); MONO # 0.7 K/uL (0.0-0.8); MONO % 13.2 % (0.0-10.0); NEUT # 3.4 K/uL (1.8-7.0); NEUT % 63.1 % (50.0-75.0); RBC 4.32 Mil/uL (4.40-5.90); WHITE BLOOD COUNT 5.3 K/uL (4.8-10.8)
[2018-08-01 09:06] LABS: INR 1.1; PROTHROMBIN TIME 11.5 SECONDS (9.7-12.2)
[2018-08-01 09:16] LABS: ALB/GLOB RATIO 1.7 (1.0-2.1); ALBUMIN 4.6 g/dL (3.5-5.0); ALT/SGPT 33 U/L (21-72); AST/SGOT 24 U/L (17-59); BLOOD UREA NITROGEN 15 mg/dL (9-20); CALCIUM 9.2 mg/dl (8.6-10.4); GFR NON-AFRICAN AMERICAN > 60
[2018-08-01 09:20] VITALS: RESP 18
[2018-08-01 09:26] LABS: B-TYPE NATRIURETIC PEPTIDE 296 pg/mL (0-900); CK-MB 0.43 ng/mL (0.0-3.38)
[2018-08-01] MEDS ORDERED: Iodixanol 320 MG/ML 100 ML BOTTLE IV ONE (10:01)
--- NOTE | 2018-08-01 10:18 | RAD ---
Chest x-ray single frontal view HISTORY: Shortness of breath. COMPARISON: None available. Findings: Mild venous congestion. Right hilar prominence. Patchy increased markings at the left lung base. Calcification at the aortic knob. Enlarged ectatic aorta. Mild cardiomegaly. Degenerative changes in the spine and shoulders. Impression: Mild venous congestion. Right hilar prominence. Patchy increased markings at the left lung base. Calcification at the aortic knob. Enlarged ectatic aorta. Mild cardiomegaly. Correlation with lateral view may be helpful.
--- NOTE | 2018-08-01 11:08 | CT ---
Date of service: 08/01/2018 CTA chest PE protocol Indication: sob, chest pain Technique: Contiguous axial images were obtained through the chest with intravenous contrast enhancement. Sagittal and coronal reconstructions were generated and reviewed. This CT exam was performed using 1 or more of the following dose reduction techniques: Automated exposure control, adjustment of the MAA and/or kV according to patient size, and/or use of iterative reconstruction technique. IV contrast: 100 mL Visipaque 320 IV Radiation dose (DLP): 544.23 MGy-cm. Comparison: Chest x-ray performed 08/01/18 Findings: Visualized portions of the inferior thyroid gland appear heterogeneous with probable 8 x 7 mm nodule, left lower pole. The mediastinal and hilar vascular structures appear within normal limits. Cardiomegaly. Marked left ventricular hypertrophy. Small pericardial fluid. Atherosclerotic calcifications of the aorta. No large central or segmental pulmonary embolus evident. Bibasilar atelectasis. No focal consolidation. No pleural effusion. No pneumothorax. Limited visualized portions of the upper abdomen: Cholecystectomy. Degenerative changes of the spine. Impression: No large central or segmental pulmonary embolus identified. Cardiomegaly. Marked left ventricular hypertrophy. Small pericardial fluid. Recommend further evaluation with echocardiogram. Mild bibasilar atelectasis. Cholecystectomy clips. Visualized portions of the inferior thyroid gland appear heterogeneous with probable 8 x 7 mm nodule, left lower pole. Follow-up with nonemergent thyroid ultrasound may be considered if indicated.
[2018-08-01 12:32] VITALS: BP 152/75; PULSE 97; TEMP 97.8
[2018-08-01 12:39] VITALS: O2SAT 96
--- NOTE | 2018-08-02 20:40 | CARD ---
APPROVED REPORT Date of service: 08/01/2018 EKG Measurement Heart [id number] <Conclusion> Sinus rhythm with 1st degree AV block ST & T wave abnormality, consider lateral ischemia Abnormal ECG
== END 2018-08-01 12:58 | disposition left against medical advice (07) ==
LOC: C.ER 07:44 → C.9E 11:14 → UNDOADMOB 11:14 → UNDODISOB 12:58
DX: R07.89 Other chest pain (principal); R06.00 Dyspnea, unspecified; I71.4 Abdominal aortic aneurysm, without rupture; I10 Essential (primary) hypertension; E78.5 Hyperlipidemia, unspecified; Z87.19 Personal history of other diseases of the digestive system; Z90.49 Acquired absence of other specified parts of digestive tract
CPT/HCPCS: 71045; 71275; 80053; 82550; 82553; 83880; 84484; 85025; 85610; 85730; G0378; Q9967